=== PATIENT | female | born 1975 | race Two or more races ===

== ENCOUNTER 2017-05-25 05:14 | Day surgery (SDC) | payer OTHER ==
[2017-05-23 13:21] LABS: HEMATOCRIT 43.4 % (34.6-47.8); HEMOGLOBIN 14.7 g/dL (11.7-16.4); WHITE BLOOD COUNT 7.7 x10^3/uL (3.4-10)
[2017-05-23 13:23] LABS: PATH.CAST-FLAG NOT PRESENT; SPERM-FLAG NOT PRESENT; SRC-FLAG NOT PRESENT; XTAL-FLAG NOT PRESENT; YLC-FLAG NOT PRESENT
[2017-05-23 13:35] LABS: ASPARTATE AMINO TRANSFERASE 18 U/L (15-37); BLOOD UREA NITROGEN 16 mg/dL (7-18)
[2017-05-23 13:47] VITALS: BP 128/88
[~2017-05-25] VITALS: Ht 152.4 cm; Wt 98.7 kg
[~2017-05-25 05:14] MED LIST: NITR100C6 PO
[2017-05-25] MEDS ORDERED: LACTATED RINGERS 1,000 ML IV SCH (05:30)
[2017-05-25] MEDS ORDERED: LIDOCAINE 1%, 2ML SQ PRN (05:30)
[2017-05-25 05:31] VITALS: BP 128/88
[2017-05-25] MEDS ORDERED: FENTANYL PF 100 MCG/2ML ONE (06:42)
[2017-05-25] MEDS ORDERED: OXYTOCIN 10 UNITS/ML, 1ML ONE (06:49)
[2017-05-25] MEDS ORDERED: BUPIVACAINE/PF 0.25% ONE (06:49)
[2017-05-25] MEDS ORDERED: KETOROLAC 30 MG/1 ML ONE (06:58)
[2017-05-25] MEDS ORDERED: CEFAZOLIN 1,000 MG ONE (06:58)
[2017-05-25] MEDS ORDERED: LIDOCAINE-MPF 2% ,5ML ONE (06:58)
[2017-05-25] MEDS ORDERED: METOCLOPRAMIDE 5 MG/ML, 2ML ONE (06:58)
[2017-05-25] MEDS ORDERED: PROPOFOL 10 MG/ML, 50ML ONE (06:58)
[2017-05-25] MEDS ORDERED: ONDANSETRON 2MG/ML, 2ML ONE (06:58)
[2017-05-25] MEDS ORDERED: DEXAMETHASONE 4 MG/ML, 5ML ONE (06:58)
[2017-05-25] MEDS ORDERED: HYDROmorphone 1 MG/ML, 1ML IV PRN (07:30)
[2017-05-25] MEDS ORDERED: ONDANSETRON 2MG/ML, 2ML IVPush PRN (07:30)
[2017-05-25] MEDS ORDERED: OXYcodone 5 MG/5 ML ORAL.SOL UDC PO PRN (07:30)
[2017-05-25] MEDS ORDERED: FENTANYL PF 100 MCG/2ML IV PRN (07:30)
[2017-05-25] MEDS ORDERED: DIAZEPAM 5 MG/ML, 2ML IVPush PRN (07:30)
[2017-05-25] MEDS ORDERED: hydrALAzine 20 MG/ML, 1ML IV PRN (07:30)
[2017-05-25] MEDS ORDERED: PROMETHAZINE 25 MG/ML, 1ML IV PRN (07:30)
[2017-05-25] MEDS ORDERED: MEPERIDINE/PF 25MG/0.5ML IVPush PRN (07:30)
[2017-05-25] MEDS ORDERED: ACETAMINOPHEN 325 MG TABLET PO PRN (07:30)
[2017-05-25] MEDS ORDERED: LABETALOL 5MG/ML, 20ML IV PRN (07:30)
[2017-05-25] MEDS ORDERED: MIDAZOLAM 1 MG/ML, 2ML IV PRN (07:30)
== END 2017-05-25 10:30 | disposition home or self-care (01) ==
LOC: OUT 05:14
PROVIDERS: ATTEND Obstetrics & Gynecology
PROC: 0UB98ZZ Excision of Uterus, Via Natural or Artificial Opening Endoscopic (ICD-10-PCS; principal; 2017-05-25 07:00)
DX: N93.8 Other specified abnormal uterine and vaginal bleeding (principal); N92.0 Excessive and frequent menstruation with regular cycle; D25.0 Submucous leiomyoma of uterus; E03.9 Hypothyroidism, unspecified; E66.01 Morbid (severe) obesity due to excess calories; Z68.42 Body mass index [BMI] 45.0-49.9, adult
CPT/HCPCS: 36415; 58561; 80053; 81001; 84703; 85025; 88305; J0690; J1100; J1885; J2405; J2590; J2704; J2765; J3010; J3490; J7120

== ENCOUNTER → 2020-08-20 | Outpatient (CLI) | payer OTHER | END | disposition home or self-care (01) | LOC: CVU 15:36 | PROVIDERS: ATTEND Family Medicine | DX: R07.9 Chest pain, unspecified (principal) | CPT/HCPCS: 93306 ==